=== PATIENT | female | born 1995 | race African-American/Black ===

== ENCOUNTER 2017-01-20 09:43 | Emergency (ER) | payer MEDICAID, OTHER ==
[~2017-01-20] VITALS: Ht 167.6 cm; Wt 73.0 kg
[2017-01-20 11:29] LABS: CLARITY URINE CLEAR (CLEAR); COLOR URINE YELLOW (YELLOW); GLUCOSE URINE NEGATIVE (NEGATIVE); KETONES URINE NEGATIVE (NEGATIVE); LEUKOCYTE ESTERASE URINE TRACE (NEGATIVE); NITRITE URINE NEGATIVE (NEGATIVE); OCCULT BLOOD URINE 1+ (NEGATIVE); PH URINE 5.5 (4.5-8.0); PROTEIN URINE NEGATIVE (NEGATIVE); SPECIFIC GRAVITY URINE 1.015 (1.005-1.030); UROBILINOGEN URINE 0.2 E.U./dL (0.2-1.0)
[2017-01-20 11:56] LABS: BACTERIA URINE TRACE; RBC URINE 0-2 /hpf (0-2); SQUAMOUS EPITHELIAL CELL URINE FEW /lpf (RARE/1+); WBC URINE 0-2 /hpf (0-2)
[2017-01-20 13:02] VITALS: BP 122/77
== END 2017-01-20 13:00 | disposition home or self-care (01) ==
LOC: ER 09:50
DX: N92.0 Excessive and frequent menstruation with regular cycle (principal)
CPT/HCPCS: 81001; 81025; 99283; Z7610

== ENCOUNTER 2019-09-10 14:36 | Emergency (ER) | payer OTHER ==
[~2019-09-10] VITALS: Ht 167.6 cm; Wt 75.0 kg
[2019-09-10] MEDS ORDERED: KETOROLAC 60MG/2ML VIAL IM ONE (17:30)
[2019-09-10] MEDS ORDERED: BUTALBITAL/ACETAMINOPHEN/CAFFEINE 50/325/40MG TABLET PO ONE (19:45)
[2019-09-10 21:40] VITALS: BP 110/74
== END 2019-09-10 21:50 | disposition home or self-care (01) ==
LOC: ER 14:36
DX: R50.9 Fever, unspecified (principal); R51 Headache
CPT/HCPCS: 71045; 87804; 96372; 99284; J1885

== ENCOUNTER 2023-03-21 20:57 | Emergency (ER) | payer OTHER ==
[~2023-03-21] VITALS: Ht 165.1 cm; Wt 79.5 kg
[2023-03-21 21:03] VITALS: BP 126/63; O2SAT 100
[2023-03-21] MEDS ORDERED: NEOM28.37 TP (22:51)
[2023-03-21 22:58] VITALS: PULSE 72; RESP 18; TEMP 98.7
== END 2023-03-21 22:58 | disposition home or self-care (01) ==
LOC: ER 20:57
DX: S01.511A Laceration without foreign body of lip, initial encounter (principal); Y04.0XXA Assault by unarmed brawl or fight, initial encounter; Y93.89 Activity, other specified; Y92.89 Other specified places as the place of occurrence of the external cause; Y99.8 Other external cause status
CPT/HCPCS: 81025; 99283